=== PATIENT | male | born 1980 | race African-American/Black ===

== ENCOUNTER → 2017-03-15 | Emergency (ER) | payer OTHER ==
[~2017-03-15] MED LIST: ONDANSETRON 4 MG/2 ML VIAL IVPB ONE; ONDANSETRON 4 MG/2 ML VIAL ONE; SODIUM CHLORIDE 0.9% 1000 ML INFUS.BAG IV ONE
[2017-03-15 14:12] VITALS: TEMP 98; BMI 27.3
--- NOTE | 2017-03-15 15:15 | PDOC ---
History of Present Illness - General Chief Complaint: Pain Stated Complaint: ABD PAIN, VOMITING Time Seen by Provider: 03/15/17 14:32 History Source: Patient Exam Limitations: No Limitations - History of Present Illness Travel History: No Initial Comments: 03/15/17 15:15 Patient states woke up this morning with severe nausea and has proceeded to have approximately 10 emesis, 4 diarrhea stools. Denies fever, denies any recent illness, known else is sick. States went to [facility] last night and had a big seafood dinner however does not feel had any tainted foods. ate the same and has not sick. Also had some [employer] last night but no one else shared. Uncertain as to food problem versus a viral illness. Patient has no history of any medical problems, 03/15/17 15:37 Timing/Duration: reports: getting worse Quality: reports: mild, moderate Abdominal Pain Onset Location: reports: epigastric, periumbilical, generalized abdomen Past History - Travel Traveled outside of the country in the last 30 days: No Close contact w/someone who was outside of country & ill: No - Past Medical History Allergies/Adverse Reactions: Allergies Allergy/AdvReac Type Severity Reaction Status Date / Time No Known Allergies Allergy Verified 03/15/17 14:07 Home Medications: Ambulatory Orders Ondansetron [Zofran *Odt*] 4 mg SL PRN PRN #14 od.tablet 03/15/17 Other medical history: NONE - Psycho/Social/Smoking Cessation Hx Anxiety: No Suicidal Ideation: No Smoking History: Current every day smoker Have you smoked in the past 12 months: Yes Number of Cigarettes Smoked Daily: 4 Information on smoking cessation initiated: Yes 'Breaking Loose' booklet given: 03/15/17 Hx Alcohol Use: No Drug/Substance Use Hx: No Substance Use Type: None Review of Systems - Review of Systems Able to Perform ROS?: Yes Is the patient limited Georgian proficient: Yes Constitutional: Yes: Symptoms Reported, See HPI, Chills, Fever (with emesis), Malaise HEENTM: Yes: See HPI. No: Symptoms Reported, Nose Congestion, Throat Pain Respiratory: Yes: See HPI. No: Symptoms reported, Cough ABD/GI: Yes: Symptoms Reported, See HPI, Diarrhea (not foul-smelling, no blood tinge, no bright red blood.), Nausea, Poor Appetite, Vomiting : Yes: See HPI. No: Symptoms Reported, Burning, Dysuria Musculoskeletal: No: Symptoms Reported Integumentary: Yes: See HPI. No: Symptoms Reported All Other Systems: Reviewed and Negative *Physical Exam - Vital Signs Last Vital Signs Temp Pulse Resp BP Pulse Ox 98.0 F 61 18 145/89 100 03/15/17 14:09 03/15/17 14:09 03/15/17 14:09 03/15/17 14:03/15/17 14:09 - Physical Exam General Appearance: Yes: Nourished, Appropriately Dressed, Apparent Distress, Mild Distress, Moderate Distress HEENT: positive: ELIZABETH, Normal ENT Inspection, TMs Normal, Pharynx Normal Neck: positive: Supple. negative: Lymphadenopathy (R), Lymphadenopathy (L) Respiratory/Chest: positive: Lungs Clear, Normal Breath Sounds Gastrointestinal/Abdominal: positive: Soft (no rebound tenderness guarding, no pulsatile masses no hepatosplenomegaly and no appreciated hernia bulging and inguinal or umbilical areas.). negative: Tender, Guarding, Rebound, Tenderness , Hepatomegaly, Spleenomegaly Extremity: positive: Normal Capillary Refill, Normal Inspection, Normal Range of Motion Integumentary: positive: Dry, Warm, Pale Neurologic: positive: economic development coordinator II-XII NML intact, Fully Oriented, Alert, Normal Mood/ Affect ED Treatment Course - LABORATORY CBC & Chemistry Diagram: 03/15/17 15:40 03/15/17 15:40 Progress Note - Progress Note Progress Note: Gastroenteritis versus food contamination. We'll treat with Zofran, obtained some basic labs, and provide IV fluid Medical Decision Making - Medical Decision Making 03/15/17 18:55 Patient much improved after 2 L of IV fluid and Zofran. He is well, ready for discharge *DC/Admit/Observation/Transfer Diagnosis at time of Disposition: Gastroenteritis - Discharge Dispostion Disposition: HOME Condition at time of disposition: Stable Admit: No - Patient Instructions Printed Discharge Instructions: DI for Viral Gastroenteritis -- Adult Additional Instructions: Rest, drink lots of fluids: Teas, water, soups Kassandra yassine, carbonated beverages for the bubbles May try peppermint teas Avoid heavy , spicy or fatty foods until symptoms have resolved Avoid contact with others until fevers and symptoms resolved Lots of handwashing and good hygiene Continue [id number] medications for symptomatic relief Tylenol or Motrin for fever and pain May use Zofran-one tablet dissolved on tongue as needed for nauseousness. May repeat times one every 8 hours Followup with private physician in one to 2 days as needed Return to emergency department for worsened symptoms, fevers, dehydration - Post Discharge Activity Work/School Note: Back to Work
[2017-03-15 15:45] LABS: BASOPHIL 0.8 % (0-2.0); EOSINOPHIL 0.2 % (0-4.5); MCHC 31.7 g/dl (32.0-35.9); MEAN CELL VOLUME 75.8 fl (80-96); MEAN PLT VOLUME 7.9 fl (7.5-11.1); NEUTROPHILS 80.8 % (42.8-82.8); PLATELET COUNT 307 K/MM3 (134-434); WHITE BLOOD COUNT 8.4 K/mm3 (4.0-10.0)
[2017-03-15 16:17] LABS: ALBUMIN 4.2 g/dl (3.4-5.0); ALK PHOS 67 U/L (45-117); ANION GAP 10 (8-16); BILIRUBIN,TOTAL 0.5 mg/dL (0.2-1.0); CALCIUM 9.9 mg/dL (8.5-10.1); CO2 26 mmol/L (21-32); COCKROFT - GAULT 96.38; CREATININE 1.2 mg/dL (0.7-1.3); GLUCOSE,RANDOM 87 mg/dL (74-106); SGOT/AST 23 U/L (15-37); SGPT/ALT 32 U/L (12-78); TOT PROT 8.1 g/dl (6.4-8.2)
[2017-03-15 19:54] VITALS: BP 135/72; PULSE 69
== END | disposition home or self-care (01) ==
LOC: JER 14:06
PROC: 3E033GC Introduction of Other Therapeutic Substance into Peripheral Vein, Percutaneous Approach (ICD-10-PCS; principal; 2017-03-15)
DX: K52.9 Noninfective gastroenteritis and colitis, unspecified (principal); F17.210 Nicotine dependence, cigarettes, uncomplicated
CPT/HCPCS: 36415; 80053; 83690; 85025; 96374; 99284-25